=== PATIENT | male | born 1990 | race Two or more races ===

== ENCOUNTER → 2016-12-22 | Outpatient (CLI) | payer BC ==
[2016-12-23 16:55] LABS: BILIRUBIN,DIRECT 0.2 mg/dL (0.1-0.3); TOTAL PROTEIN 6.9 g/dL (6.6-8.7)
[2016-12-24 13:43] LABS: ALPHA 1 ANTITRYPSIN 144 mg/dL (90-200); CERULOPLASMIN 27.4 mg/dL (16.0-31.0); IMMUNOGLOBULIN A 130 mg/dL (90-386); SM/RNP ANTIBODY <0.2 AI (0.0-0.9)
[2016-12-27 11:11] LABS: GLIADIN IGG AB 3 units (0-19)
== END | disposition home or self-care (01) ==
LOC: PAN 15:37
DX: R94.5 Abnormal results of liver function studies (principal); R63.4 Abnormal weight loss
CPT/HCPCS: 36415; 80076; 82103; 82390; 82784; 83516; 83520; 86235; 86255